=== PATIENT | male | born 1960 | race Caucasian/White ===

== ENCOUNTER 2019-12-19 11:47 | Inpatient (IN) | payer OTHER ==
[2019-12-19] VITALS (8 sets, daily range): BP systolic 146–230; BP diastolic 86–145
[~2019-12-19] VITALS: Ht 182.9 cm; Wt 106.4 kg
[2019-12-19] MEDS ORDERED: COZAAR 25 MG TA25 M2 PO (11:58)
[2019-12-19 12:18] LABS: CALCIUM 9.8 mg/dL (8.5-10.1); CREATININE 1.3 mg/dL (0.6-1.3); POTASSIUM 4.4 mmol/L (3.5-5.1)
[2019-12-19 12:28] LABS: ALBUMIN 4.2 g/dL (3.4-5.0); TOTAL BILIRUBIN 0.4 mg/dL (<0.1-1.0); TOTAL PROTEIN 8.2 g/dL (6.4-8.2)
[2019-12-19 12:39] LABS: ABSOLUTE EOSINOPHILS 0.1 thou/uL (0.0-0.7); ABSOLUTE LYMPHOCYTES 0.9 thou/uL (0.8-5.3); ABSOLUTE MONOCYTES 0.7 thou/uL (0.0-1.2); ABSOLUTE NEUTROPHILS 9.4 thou/uL (1.6-8.1); BASOPHILS 0.2 %; EOSINOPHILS 0.7 %; HEMATOCRIT 43.4 % (42.0-52.0); HEMOGLOBIN 14.9 gm/dL (14.0-18.0); LYMPHOCYTES 8.2 %; MCH 31.7 pg (26.0-34.0); MCHC 34.2 g/dL (28.0-37.0); MCV 92.6 fL (80.0-100.0); MONOCYTES 6.3 %; MPV 8.1 fl. (7.2-11.1); NUCLEATED RBCS 0 /100WBC; PLATELET COUNT* 349 thou/uL (150-400); POLYS 84.6 %; RBC 4.69 mil/uL (4.50-6.00); RDW-CV 13.5 % (10.5-14.5); WBC 11.1 thou/uL (4.0-11.0)
[2019-12-19 12:58] LABS: APTT 27.2 Seconds (25.0-31.3); PROTIME 9.8 Seconds (9.20-11.50)
--- NOTE | 2019-12-19 15:56 | NUR ---
report received from ER nurse. pt admitted on tele floor at 1415 n stretcher. pt is complaining on chest pain radiating to his neck. level 8. vale sublingual given. SBP 230. labetolol given. morphine given as well along with other prescribed medication. pt on 2 l nc. o2 saturation 99%. head of bed elevated. heparin bolus given. heparin drip started s ordered. see chart. nitropaste applied as ordered. bp rechecked one hour after. see chart. SBP 146.lunch offered along with water. iv normal saline infusing as ordered. pt now states that his chest pain is at a level of 3. call light at reach. will continue to monitor.
--- NOTE | 2019-12-19 16:05 | NUR ---
critical trop is 1.66. notified of elevated trop level. this nurse spoke with cardiology who wants patient to be NPO after midnight for cardiac procedure. no chocolate, coffee, or caffeine product sign placed at patient's door. will continue to monitor.
--- NOTE | 2019-12-19 17:33 | NUR ---
no chest pain per patient at this time. pt ate diner. pt to be npo after midnight. accucheck. insulin given. per patient, pt only have one home medication which is losartan
[2019-12-20] VITALS (16 sets, daily range): BP systolic 135–243; BP diastolic 89–128
[2019-12-20 02:07] LABS: GLYCOHEMOGLOBIN (HGB A1C) 6.1 % (4.8-5.6)
--- NOTE | 2019-12-20 04:40 | NUR ---
PT ALERT ORIENTED. DENIES CP. DID HAVE A SINUS PUGA EARLIER THIS EVENING. DR HERRMANN INTO SEE PT. NPO AT IN FOR CARDIAC CATH. TELEMETRY SHOWS SR/ST. O2 AT 2 LITERS NC. VOIDS PER BR. WCTM
[2019-12-20 05:09] LABS: HEMATOCRIT 37.8 % (42.0-52.0); MCH 31.7 pg (26.0-34.0); MCHC 34.2 g/dL (28.0-37.0); MCV 92.6 fL (80.0-100.0); MPV 8.1 fl. (7.2-11.1); RBC 4.08 mil/uL (4.50-6.00); RDW-CV 13.4 % (10.5-14.5); WBC 12.7 thou/uL (4.0-11.0)
[2019-12-20 05:12] LABS: HEMOGLOBIN 12.9 gm/dL (14.0-18.0)
[2019-12-20 05:34] LABS: ANION GAP 10 mmol/L (7-16); BUN 20 mg/dL (7-18); CALCIUM 8.9 mg/dL (8.5-10.1); CHLORIDE 98 mmol/L (98-107); CO2 25 mmol/L (21-32); CREATININE 1.3 mg/dL (0.6-1.3); GLUCOSE 142 mg/dL (70-99); POTASSIUM 4.2 mmol/L (3.5-5.1); SODIUM 133 mmol/L (136-145)
[2019-12-20 05:39] LABS: CHOLESTEROL 198 mg/dL (<200); HDL CHOLESTEROL 34 mg/dL (>40); LDL CHOLESTEROL 125 mg/dL (<100); MAGNESIUM 1.9 mg/dL (1.8-2.4); TC:HDL 5.8 Ratio (Not establshd); TRIGLYCERIDE 199 mg/dL (<150); VLDL 40 mg/dL (<40)
[2019-12-20 05:40] LABS: SERUM ASSESSMENT Clear
--- NOTE | 2019-12-20 10:25 | NUR ---
ASSUMED PT CARE REPORT RECEIVED FROM NURSE. PT IS AOX4. ASA A ND LOSARTAN GIVEN. VSS STABLE SEE CHART. CONSENT SIGNED. PT WENT FOR HEART CATH , PT CAME BACK AT 1025 FROM BOTTOM STEEP TENDER. WILL CONTINUE TO MONITOR
--- NOTE | 2019-12-20 10:45 | NUR ---
RADSTAT PROTOCOL IN PLACE. FOOD AND WATER PROVIDED. VS BEING MONITORED Q15 MINUTES. WILL CONTINUE TO MONITOR
--- NOTE | 2019-12-20 10:46 | NUR ---
RIGHT RADIAL SITE IS INTACT. NO BLEEDING
--- NOTE | 2019-12-20 13:12 | EKG ---
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 : 1960 Requested By: Tyrel Madden Order Number: [id number] MD: Tru Rodriguez Measurements Intervals [place] Rate: 106 P: 41 MT: 149 QRS: 4 QRSD: 87 T: 89 QT: 321 QTc: 427 Interpretive Statements Sinus tachycardia Probable left atrial enlargement Left ventricular hypertrophy Abnormal T, consider ischemia, lateral leads ST elevation, consider early repolarization No previous ECG available for comparison Electronically Signed On 12-20-2019 13:10:58 CDT by Tru Rodriguez [email or web address] <ELECTRONICALLY SIGNED> By: Tru Rodriguez MD, [facility] 12/20/19 1310 1152 1152 Tru Rodriguez MD, [facility] /EPI
--- NOTE | 2019-12-20 15:20 | NUR ---
VS CHARTED RADSTAT PROTOCOL IN PLACE. RIGHT RADIAL SITE IS INTACT. BP BEING MONITORED. BP DECREASED AFTER ADMINISTRATION OF BP MEDICATION.
--- NOTE | 2019-12-20 18:20 | NUR ---
RAADIAL ARTERY COMPRESSION DEVICE REMOVED AT BEDSIDE. NO BLEEDING. 4 BY 4 GAUZE PLACED OVER SITE WITH TRANSPARENT DRESSING. PT IS UP AD COLTON. DENIES PAIN OF ANY KIND. MARCIA CONTINUE TO MONITOR
[2019-12-21] VITALS: BP 135/90
[2019-12-21 04:00] VITALS: BP 132/88
--- NOTE | 2019-12-21 04:39 | NUR ---
ASSUMED PT CARE AT APPROX 1930. PT IS AWAKE AND ORIENTED X4. 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 PT DENIES CHEST PAIN/DISCOMFORT. NO ACUTE CHANGES OVERNIGHT. CALL LIGHT WITHIN REACH. HOURLY ROUNDING DONE FOR PT SAFETY.
[2019-12-21 04:43] LABS: HEMATOCRIT 35.7 % (42.0-52.0); HEMOGLOBIN 12.3 gm/dL (14.0-18.0); MCH 31.7 pg (26.0-34.0); MCHC 34.3 g/dL (28.0-37.0); MCV 92.3 fL (80.0-100.0); MPV 8.1 fl. (7.2-11.1); RBC 3.87 mil/uL (4.50-6.00); RDW-CV 13.3 % (10.5-14.5); WBC 9.6 thou/uL (4.0-11.0)
[2019-12-21 05:11] LABS: CALCIUM 8.7 mg/dL (8.5-10.1); CREATININE 1.2 mg/dL (0.6-1.3)
[2019-12-21 05:20] LABS: TROPONIN-I LEVEL 28.92 ng/mL (<0.06)
[2019-12-21 08:00] VITALS: BP 113/72
[2019-12-21] MEDS ORDERED: EFFIENT10 MG PO (10:25)
[2019-12-21] MEDS ORDERED: LIPITOR 40 MG T40 M1 PO (10:25)
[2019-12-21] MEDS ORDERED: ASPIR 8181 MG PO (10:25)
[2019-12-21] MEDS ORDERED: TOPROL XL50 MG PO (10:25)
[2019-12-21] MEDS ORDERED: LASIX 20 MG TAB20 MG PO (10:26)
[2019-12-21] MEDS ORDERED: KLOR-CON 10 ER10 MEQ PO (10:26)
[2019-12-21 11:30] VITALS: BP 131/84
[2019-12-21 12:49] VITALS: BP 113/72
[2019-12-21] MEDS ORDERED: NITROSTAT0.4 M1 SUBLING (13:48)
[2019-12-21] MEDS ORDERED: COZAAR 50 MG TA50 M1 PO (13:50)
[2019-12-21 13:59] VITALS: BP 113/72
--- NOTE | 2019-12-21 14:48 | NUR ---
ASSUMED CARE OF PATIENT THIS AM AT 0730. PATIENT IS ALERT AND ORIENTED X 4. HE DENIES CHEST PAIN AND SOA. DR IN TO ROUND THIS AM AND DISCHARGE ORDERS WERE WRITTEN. CARDIOLOGY IN THIS AFTERNOON TO WRITE FURTHER DISCHARGE ORDERS. RIGHT WRIST CATH SITE IS INTACT AND WITHOUT HEMATOMA. SALINE LOCK AND TELEMONITOR DISCONTINUED. PATIENT GIVEN DISCHARGE INSTRUCTIONS, PRESCRIPTIONS, CARE NOTES AND FOLLOWUP INSTRUCTIONS. HE VERBALIZED UNDERSTANDING OF INSTRUCTIONS. PATIENT DISCHARGED TO HOME WITH BELONGINGS.
--- NOTE | 2019-12-22 12:34 | CARD ---
[address] [address] CARDIAC CATH REPORT Name: TRU REIS Room: [address]#: [id number] Admission: 12/19/19 Attend Phys: Andrew Moraes MD Discharge: 12/21/19 Date of : 64 Report #: [id number] THIS REPORT FOR: //name// cc: Parth Duran DO Parth Duran DO ~ APPROVED REPORT Study performed: 12/20/2019 08:19:26 Patient Details Patient Status: In-Patient Room #: 223 The patient is a 59 year-old male Event Personnel Tru Rodriguez Buffing Wheel Raker, Sophia Chung Ampoule Sealer, Dimple Kay RTR Scrub, Carla Pablo RTR Monitor Procedures Performed Art Access - R radial artery, Left Heart Cath w/or w/o Coronaries LHC , MONICA Place w/wo Plasty Single DIAG , Hemostasis with Hemoband Indication Abnormal ECG, Non-STEMI , Chest pain Risk Factors Diabetes Admission/Lab Medications/Medications given during procedure Glycoprotein IllbIlla Inhibitors, Heparin Unfract., Nitroglycerin IA bolus 400 mcg total, Verapamil IA bolus 5 mg total, Heparin IV bolus 7000 units total, Aggrastat IV bolus 10 ml, Hydralazine (Apresoline) IV 10 mg, Effient PO 60 mg, Nitroglycerin IC 200 mcg Procedure Narrative The patient was brought electively to the Cardiac Catheterization Laboratory and was prepped and draped in a sterile manner. The right wrist was infiltrated with 1% Lidocaine subcutaneous anesthesia. A 6F Slender Freedom sheath was inserted into the right radial artery. Coronary angiography was performed using coronary diagnostic catheters. The right coronary system was accessed and visualized with a 6F JR4 catheter. The left coronary system was accessed and visualized with a 6F JL4 catheter. The [place] [address] CARDIAC CATH REPORT Name: TRU REIS Room: [address]#: [id number] Admission: 12/19/19 Attend Phys: Andrew Moraes MD Discharge: 12/21/19 Date of : 64 Report #: [id number] and visualized with a 6F Pigtail catheter. Left ventricular/Aortic Valve gradient assessed via catheter pullback. Left ventriculogram was performed in CASTELAN projection. Closure device was deployed with a 6 Fr Radial vasc band 27 cm. The patient tolerated the procedure well and there were no complications associated with the procedure. There was no hematoma. Intraoperative Conscious Sedation Sedation start time: 09:09 Case end Time: 09:58 Fentanyl 25 mcg Versed 4 mg Fluoro Time: 7.6 minutes Dose: DAP [id number] cGycm2 2192 mGy Contrast Type and Amount: Visipaque 190 ml Coronary Angiography The patient's coronary anatomy is co- dominant. Diagnostic Cath Left Main 0% stenosis LAD 40% distal stenosis Diagonal 1 100% occluded Circumflex 0% stenosis Right Coronary 30% proximal stenosis R PDA 80% mid stenosis Left Ventriculography The left ventricular ejection fraction is estimated to be 40-45%. Left ventricular wall motion abnormalities are present. There is no mitral insufficiency. Severe distal anterolateral wall hypokinesis Hemodynamics The aortic pressure is 168/106 mmHg with a mean of 133 mmHg. The left ventricular pressure is 168/24 mmHg with a mean of mmHg. The left ventricular end diastolic pressure is 30 mmHg. There was no gradient across the aortic valve upon pullback. Pullback from the left ventricle to the aorta revealed no gradient across the aortic valve. PCI Technique Lesion Anticoagulation was achieved with Heparin. bolus of iv aggrastat given Percutaneous coronary intervention was performed on the first diagnonal branch segment. The lesion stenosis prior to intervention was 100% with THANG 0 flow. A 6F XB LAD 3.5 [place] [address] CARDIAC CATH REPORT Name: TRU REIS Room: [address]#: [id number] Admission: 12/19/19 Attend Phys: Andrew Moraes MD Discharge: 12/21/19 Date of : 64 Report #: [id number] engage the left main ostium. A BMW 190cm Interventional Guidewire was used to cross the lesion. BALLOON DILATION A Balloon catheter Euphora RX 2.5 x 12mm was inserted and inflated up to 10.00atm for 11seconds. Repeat angiography revealed the following post-dilatation results: 40% stenosis. Additional Inflation: 12.00atm for 9seconds. Additional Inflation: 12.00atm for 10seconds. STENT DEPLOYMENT A drug-eluting stent [place] RX Stent 2.5X18mm was inserted and inflated up to 10.00atm for 19seconds. Repeat angiography revealed the following post-stent deployment results: 0% stenosis. Additional Inflation: 17.00atm for 17seconds. Final angiography reveals 0 % stenosis with THANG 3 flow. Conclusion 1. acute occlusion of the first diagonal branch of the LAD 2. successful placement of a drug eluiting stent in the diagonal artery. 3. LVEF 40-45% Recommendations Cardiac Rehabilitation Referral Aggressive Medical Therapy Medications Administered Prasugrel <ELECTRONICALLY SIGNED> By: Tru Rodriguez MD, [facility] 12/22/19 1232 1232 1232Davineisha Rodriguez MD, FAC /INF
--- NOTE | 2019-12-22 15:21 | CON ---
[address] [address] CONSULTATION Name: TRU REIS Room: [address] IN .R.#: [id number] Admission: 12/19/19 Attend Phys: Andrew Moraes MD Discharge: 12/21/19 Date of : 64 Report #: [id number] THIS REPORT FOR: //name// cc: Parth Duran Bradley L. DO THIS REPORT FOR: //name// CC: Parth Duran DO Andrew Moraes DATE OF SERVICE: 12/19/2019 CARDIOLOGY CONSULTATION HISTORY OF THE PRESENT ILLNESS: The patient is a 59-year-old single white male who I was asked to see in the hospital today after he had evidence of a non-STEMI. The patient has no previous history of heart disease. 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 He was doing well until 2 nights ago, he went out to dinner. When he got home, he felt a discomfort in his chest, lasted a couple of hours, he finally went to sleep. Yesterday, he again had a discomfort in his chest and his jaw, he felt diaphoretic. He finally drove himself to the hospital today. In the Emergency Room, he was noted to have elevated troponin consistent with non-STEMI. I was asked to see him for further evaluation and treatment. He denies a previous history of exertional chest pain. He denied the pain today being related to coughing. He has had no recent fever or blood in stool. He denied trauma to his chest, no rash. He was given nitroglycerin in the Emergency Room, his pain resolved. PAST MEDICAL HISTORY: He has had previous knee surgery, neck surgery, hernia repair, hypertension. No history of diabetes or hyperlipidemia. CURRENT MEDICATIONS: Consists of losartan 25 mg a day. ALLERGIES: He has no known drug allergies. FAMILY HISTORY: Negative for heart disease. 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 Smokes less than a half pack of cigarettes a day. REVIEW OF SYSTEMS: He has no history of stroke. He does have a chronic cough. No history of liver disease, kidney disease, cancer, psychiatric illness, [place] [address] CONSULTATION Name: SMILEYTRU ARCHER Room: [address]#: [id number] Admission: 12/19/19 Attend Phys: Andrew Moraes MD Discharge: 12/21/19 Date of : 64 Report #: [id number] PHYSICAL EXAMINATION: GENERAL: Revealed an elderly male, appeared in no distress. VITAL SIGNS: He initially had a blood pressure of 200/100, currently blood pressure 150/90; pulse is 80. He is afebrile. HEENT: He was anicteric. Conjunctivae were pink. Mucous membranes moist. NECK: Veins nondistended. No carotid bruits. CHEST: There is expiratory wheezes. CARDIAC: Regular rate and rhythm. ABDOMEN: Soft. EXTREMITIES: Had no edema. Posterior tibial pulse 2+ bilaterally. SKIN: Cool and dry. NEUROLOGIC: Nonfocal. LABORATORY AND DIAGNOSTIC DATA: His ECG in the Emergency Room today showed a sinus rhythm. There is T-wave inversion in lead aVL, V5, V6. Workup in the Emergency Room today, he had a portable chest x-ray, normal heart size and clear lung michele. His laboratory: Sodium 136, potassium 4.4, BUN 20, creatinine 1.3, glucose is 150. His liver function studies were normal. Troponin is now 2.25, BNP 388. TSH 1.0. White blood cell count 11.1, hemoglobin 14.9. IMPRESSION AND RECOMMENDATIONS: 1. Non-ST elevation myocardial infarction. Recommend cardiac catheterization. 2. Hypertension. The patient is on an ARB. 3. Tobacco abuse. 4. Chronic bronchitis. 5. Elevated blood glucose. Rule out diabetes. <ELECTRONICALLY SIGNED> By: Tru Rodriguez MD, [facility] 12/22/19 1521 2301 [id number] Rodriguez MD, [facility] /nt
--- NOTE | 2019-12-22 16:07 | EKG ---
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 : 1960 Requested By: Tyrel Madden Order Number: [id number] Reading MD: Kristofer Rousseau Measurements Intervals [place] Rate: 90 P: 42 KS: 143 QRS: 4 QRSD: 86 T: 93 QT: 368 QTc: 451 Interpretive Statements Sinus rhythm Left ventricular hypertrophy Abnormal T, consider ischemia, lateral leads Compared to ECG 12/19/2019 11:52:15 Sinus tachycardia no longer present T-wave abnormality still present Possible ischemia still present ST (T wave) deviation still present Electronically Signed On 12-22-2019 16:05:47 CDT by Kristofer Rousseau [email or web address] <ELECTRONICALLY SIGNED> By: Kristofer Rousseau MD, [facility] 12/22/19 1605 1233 1233 Kristofer Rousseau MD, [facility] /EPI
--- NOTE | 2019-12-22 16:19 | EKG ---
[place] [address] ELECTROCARDIOGRAM REPORT Name: TRU REIS Room: [address] IN M.R.#: [id number] Admission: 12/19/19 Attend Phys: Andrew Moraes, Discharge: 12/21/19 Date of : 64 Date of Service: 12/21/19 1052 Report #: [id number] THIS REPORT FOR: //name// [place] Test Date: 2019-12-21 Test Time: 10:52:21 Pat Name: TRU REIS Department: Room: [address] Gender: M Cardroom Attendant: : 1960 Requested By: Tru Rodriguez Order Number: [id number] Luanne MD: Kristofer Rousseau Measurements Intervals [place] Rate: 81 P: 39 NV: 142 QRS: 70 QRSD: 96 T: 191 QT: 431 QTc: 501 Interpretive Statements Sinus rhythm deep t wave inversion over anterior precordium, possible ischemia LVH w/ repol abnormalities Minimal ST elevation, lateral leads Prolonged QT interval Compared to ECG 12/19/2019 11:52:15 deep t wave inversion has developed lateral ischemic changes have evolved Electronically Signed On 12-22-2019 16:17:52 CDT by Kristofer Rousseau [email or web address] <ELECTRONICALLY SIGNED> By: Kristofer Rousseau MD, [facility] 12/22/19 1617 1052 1052 Kristofer Rousseau MD, [facility] /EPI
== END 2019-12-21 14:30 | disposition home or self-care (01) | DRG 246 ==
LOC: M.ERS 11:47 → M.TBA 13:03 → M.2W 13:03
PROVIDERS: Emergency Medicine Emergency Medical Services; Internal Medicine Cardiovascular Disease; ADMIT Internal Medicine
PROC: 027034Z Dilation of Coronary Artery, One Artery with Drug-eluting Intraluminal Device, Percutaneous Approach (ICD-10-PCS; principal; 2019-12-20)
PROC: 4A023N7 Measurement of Cardiac Sampling and Pressure, Left Heart, Percutaneous Approach (ICD-10-PCS; principal; 2019-12-20)
PROC: B215YZZ Fluoroscopy of Left Heart using Other Contrast (ICD-10-PCS; principal; 2019-12-20)
PROC: B211YZZ Fluoroscopy of Multiple Coronary Arteries using Other Contrast (ICD-10-PCS; principal; 2019-12-20)
PROC: 3E033PZ Introduction of Platelet Inhibitor into Peripheral Vein, Percutaneous Approach (ICD-10-PCS; principal; 2019-12-20)
DX: I21.4 Non-ST elevation (NSTEMI) myocardial infarction (principal); I50.23 Acute on chronic systolic (congestive) heart failure; I16.1 Hypertensive emergency; I13.0 Hypertensive heart and chronic kidney disease with heart failure and stage 1 through stage 4 chronic kidney disease, or unspecified chronic kidney disease; F17.210 Nicotine dependence, cigarettes, uncomplicated; J42 Unspecified chronic bronchitis; K21.9 Gastro-esophageal reflux disease without esophagitis; E11.22 Type 2 diabetes mellitus with diabetic chronic kidney disease; N18.9 Chronic kidney disease, unspecified; E78.5 Hyperlipidemia, unspecified; M19.90 Unspecified osteoarthritis, unspecified site; E66.9 Obesity, unspecified; F41.1 Generalized anxiety disorder; F41.0 Panic disorder [episodic paroxysmal anxiety]; Z68.31 Body mass index [BMI] 31.0-31.9, adult; Z90.89 Acquired absence of other organs; Z79.899 Other long term (current) drug therapy

== ENCOUNTER → 2020-08-10 | Outpatient (CLI) | payer OTHER ==
[~2020-08-10] MED LIST: ASPIR 8181 MG PO; COZAAR 25 MG TA25 M2 PO; COZAAR 50 MG TA50 M1 PO; EFFIENT10 MG PO; KLOR-CON 10 ER10 MEQ PO; LASIX 20 MG TAB20 MG PO; LIPITOR 40 MG T40 M1 PO; NITROSTAT0.4 M1 SUBLING; TOPROL XL50 MG PO
[2020-08-10 14:40] LABS: ABSOLUTE LYMPHOCYTES 1.9 thou/uL (0.8-5.3); ABSOLUTE MONOCYTES 1.3 thou/uL (0.0-1.2); ABSOLUTE NEUTROPHILS 9.2 thou/uL (1.6-8.1); BASOPHILS 0.3 %; EOSINOPHILS 0.3 %; HEMATOCRIT 38.1 % (42.0-52.0); HEMOGLOBIN 12.9 gm/dL (14.0-18.0); LYMPHOCYTES 15.4 %; MCHC 33.7 g/dL (28.0-37.0); MCV 91.9 fL (80.0-100.0); MONOCYTES 10.2 %; MPV 8.1 fl. (7.2-11.1); NUCLEATED RBCS 0 /100WBC; PLATELET COUNT* 298 thou/uL (150-400); POLYS 73.8 %; RBC 4.15 mil/uL (4.50-6.00); RDW-CV 13.5 % (10.5-14.5); WBC 12.5 thou/uL (4.0-11.0)
[2020-08-10 15:05] LABS: CALCIUM 9.3 mg/dL (8.5-10.1); CREATININE 1.2 mg/dL (0.6-1.3); POTASSIUM 4.2 mmol/L (3.5-5.1)
== END ==
LOC: M.LAB 14:23
PROVIDERS: ATTEND Nurse Practitioner
DX: R06.02 Shortness of breath (principal)

== ENCOUNTER → 2020-08-25 | Outpatient (CLI) | payer OTHER ==
[~2020-08-25] MED LIST changes: +ESCITALOPRA5 MG/5 ML PO; +FAMOTIDINE 10 M10 MG PO; +FISH OIL 1,0001 EAC9 PO; +SUPER THERAVIT1 EACH PO; +TOPROL XL100 MG PO
--- NOTE | 2020-08-25 16:29 | CARDNUC ---
[place] [address] CARDIAC NUCLEAR IMAGING REPORT Name: SMILEYTRU Mejía Room: [facility]#: [id number] Admission: 08/25/20 Attend Phys: Bc Vick, Discharge: Date of : 64 Date of Service: 08/25/20 1629 Report #: [id number] THIS REPORT FOR: cc: Parth Duran Bradley L. DO [place],Bc Beauchamp MD [facility] ~ APPROVED REPORT Study performed: 08/25/2020 14:17:52 Exam: Nuclear Stress Test Indication: Dyspnea Patient Location: Out-Patient Stress Tech: Maria Teresa Chiu Stress Nurse: Jasmina Farias RN NM Tech:OZZY Chapman Ht: 6 ft 0 in Wt: 134 lbs BSA: 1.80 m2 BMI: 18.17 Medical History Medical History: Cardiomyopathy, CAD s/p TN, CAD s/p stent, HTN, Hyperlipidemia Medications: asa-81, atorvastatin, fish oil, lasix, toprolol-xl, ntg, k-dur, effient, losartan Allergies: No known drug allergies Cardiac Risk Factors: Age, HTN, Hyperlipidemia, Past Smoker Previous Cardiac Procedures: PCI, Myocardial infarction Exercise History: Indeterminate Meds Held (24 hrs): toprolol-xl Stress Test Details Stress Test: Pharmacologic stress testing performed using 0.4 mg of regadenoson per 5 mL given IV over 10 seconds. Reason for pharmacologic stress test: physical limitation. HR Resting HR: 76 bpm Max Heart Rate (APMHR): 163 bpm Max HR Achieved: 104 bpm Target HR (85% APMHR): 138 bpm % of APMHR: 63 Recovery HR: 92 bpm BP Resting BP: 151/100 [place] [address] CARDIAC NUCLEAR IMAGING REPORT Name: TRU REIS Room: [facility]age#: [id number] Admission: 08/25/20 Attend Phys: Bc Vick, Discharge: Date of : 64 Date of Service: 08/25/20 1629 Report #: [id number] Max BP: 170/70 mmHg ECG Resting ECG: Sinus Rhythm, nonspecific ST-T abnormalities Stress ECG: Sinus Rhythm, nonspecific ST-T abnormalities ST Change: None Arrhythmia: None Recovery ECG: Sinus Rhythm, nonspecific ST-T abnormalities Recovery ST Change: None Recovery Arrhythmia: None Clinical Reason for Termination: Completed protocol The patient tolerated Lexiscan infusion without significant cardiac symptoms. Nurse Comments pt unable to walk treadmill due to sore knee Stress ECG Conclusion The baseline twelve-lead EKG shows sinus rhythm with some diffuse nonspecific ST segment depression. EKGs obtained during and post Lexiscan infusion show sinus rhythm with persistent nonspecific ST segment depression that is not significantly changed from baseline. There were no stress-induced arrhythmias. NM EXAM: Myocardial Perfusion REST/STRESS Imaging Protocol: Rest Tc-99m/Stress Tc-99m 1 day Resting Data Rest SPECT myocardial perfusion imaging was performed in supine position 30 minutes following the intravenous injection of 10.2 mCi of Tc-99m Sestamibi. Time of rest injection: 1255 Date: 08/25/2020 The images were gated to evaluate regional wall motion and calculate left ventricular ejection fraction. Administration Route: IV Pharmacologic Stress Pharmacologic stress test was performed by injecting Regadenoson 0.4 mg IV push followed by the intravenous injection of 33.5 mCi of Tc-99m Sestamibi. Time of stress injection: 1430 Date: 08/25/2020 Administration Route: [place] [address] CARDIAC NUCLEAR IMAGING REPORT Name: TRU REIS Room: [facility]#: [id number] Admission: 08/25/20 Attend Phys: Bc Vick, Discharge: Date of : 64 Date of Service: 08/25/20 1629 Report #: [id number] Gated Stress SPECT was performed 40 minutes after stress injection. The images were gated to evaluate regional wall motion and calculate left ventricular ejection fraction. Stress only was performed in the Supine position. Study Quality Study: Good Artifact: No artifact Study Data At rest, the left ventricular ejection fraction was 39%.. Post stress, the left ventricular ejection was 39%.. TID = 0.91. Perfusion Perfusion images show a small in size severe intensity fixed anteroapical defect with a moderate region of buddy-infarct ischemia extending into the apical portions of the lateral and inferior bob. No other significant fixed or reversible defects are identified. Wall Motion LV systolic function is moderately decreased. There is significant hypokinesis to akinesis involving the apex and apical portions of the anterior and anterolateral wall. Nuclear Conclusion ECG Findings: non-diagnostic Clinical Findings: negative for ischemia Nuclear Findings: positive for ischemia Exercise Capacity: not assessed Left Ventricular Function: abnormal Risk Study: high Perfusion images suggest prior focal apical anterior infarct with a moderate region of buddy-infarct ischemia. Global LV systolic function is moderately decreased with wall motion abnormalities as outlined above. This is a high risk study. <Conclusion> The baseline twelve-lead EKG shows sinus rhythm with some diffuse nonspecific ST segment depression. EKGs obtained during and post Lexiscan infusion show sinus rhythm with persistent nonspecific [place] [address] CARDIAC NUCLEAR IMAGING REPORT Name: TRU REIS Room: [facility]#: [id number] Admission: 08/25/20 Attend Phys: Bc Vick, Discharge: Date of : 64 Date of Service: 08/25/20 1629 Report #: [id number] segment depression that is not significantly changed from baseline. There were no stress-induced arrhythmias. <ELECTRONICALLY SIGNED> By: Bc Vick MD, FACC 08/25/201628 28 28 Bc Vick MD, FACC /INF
== END ==
LOC: M.NUC 08-11 16:16
PROVIDERS: ATTEND Internal Medicine Cardiovascular Disease
DX: I25.10 Atherosclerotic heart disease of native coronary artery without angina pectoris (principal)

== ENCOUNTER 2020-09-14 08:59 | Observation (INO) | payer OTHER ==
[~2020-09-14] VITALS: Ht 182.9 cm; Wt 108.3 kg
[2020-09-14] VITALS (11 sets, daily range): BP systolic 139–174; BP diastolic 65–113
--- NOTE | ~2020-09-14 | H ---
[address] [address] HISTORY AND PHYSICAL Name: TUR REIS Room: [address] Cathy Cazares#: [id number] Admission: 09/14/20 Attend Phys: Tru Rodriguez MD, F Discharge: 09/15/20 Date of : 64 Report #: [id number] THIS REPORT FOR: cc: Parth Duran Bradley L. DO ~ [facility],Medical Records Staff Please refer to the History and Physical performed in the physician's office. By: [facility]0Medical Records Staff [facility] /[place]
[2020-09-14 09:47] LABS: HEMATOCRIT 39.7 % (42.0-52.0); HEMOGLOBIN 13.2 gm/dL (14.0-18.0); MCH 30.4 pg (26.0-34.0); MCHC 33.2 g/dL (28.0-37.0); MCV 91.5 fL (80.0-100.0); MPV 8.2 fl. (7.2-11.1); RBC 4.34 mil/uL (4.50-6.00); RDW-CV 13.2 % (10.5-14.5); WBC 6.1 thou/uL (4.0-11.0)
[2020-09-14 10:01] LABS: ALBUMIN 3.9 g/dL (3.4-5.0); ALKALINE PHOSPHATASE 92 U/L (46-116); ANION GAP 7 mmol/L (7-16); BUN 15 mg/dL (7-18); CALCIUM 8.9 mg/dL (8.5-10.1); CHLORIDE 103 mmol/L (98-107); CHOLESTEROL 96 mg/dL (<200); CO2 31 mmol/L (21-32); CREATININE 1.2 mg/dL (0.6-1.3); GLUCOSE 115 mg/dL (70-99); HDL CHOLESTEROL 29 mg/dL (>40); LDL CHOLESTEROL 53 mg/dL (<100); POTASSIUM 4.4 mmol/L (3.5-5.1); SGOT 24 U/L (15-37); SGPT 38 U/L (30-65); SODIUM 141 mmol/L (136-145); TC:HDL 3.3 Ratio (Not establshd); TOTAL BILIRUBIN 0.4 mg/dL (<0.1-1.0); TOTAL PROTEIN 7.1 g/dL (6.4-8.2); TRIGLYCERIDE 74 mg/dL (<150); VLDL 15 mg/dL (<40)
[2020-09-14 10:04] LABS: SERUM ASSESSMENT Clear
[2020-09-14 10:11] LABS: APTT 25.2 Seconds (25.0-31.3); PROTIME 10.4 Seconds (9.20-11.50)
--- NOTE | 2020-09-14 10:31 | EKG ---
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: : 1960 Requested By: Berhane Rodriguez Order Number: [id number] Reading MD: Berhane Rodriguez Measurements Intervals [place] Rate: 58 P: 69 MS: 157 QRS: 63 QRSD: 105 T: 100 QT: 433 QTc: 426 Interpretive Statements Sinus rhythm Probable lateral infarct, age indeterminate Compared to ECG 12/21/2019 10:52:21 T-wave abnormality no longer present Possible ischemia no longer present Left ventricular hypertrophy no longer present ST (T wave) deviation no longer present Prolonged QT interval no longer present Electronically Signed On 09-14-2020 10:31:27 [place] [employer] by Berhane Rodriguez [email or web address] <ELECTRONICALLY SIGNED> By: Berhane Rodriguez MD, FACC 09/14/20 1031 1010 1010 Behrane Rodriguez MD, FAC /EPI
--- NOTE | 2020-09-14 15:10 | NUR ---
PT ORIENTED TO ROOM AND UNIT. BED LOW AND LOCKED, SIDE RAILS UP X3, CALL LIGHTIN REACH, TELE APPLIED. RIGHT RADIAL SOTE CDI WITH NO HEMATOMA. TR BAND IN PLACE. WILL CONTINUE TO ASSESS.
--- NOTE | 2020-09-14 17:43 | NUR ---
PRESSURE FULLY RELEASED FROM TR BAND AND REMOVED. GAUZE AND TRANSPARENT DRESSING PLACED OVER RADIAL SITE WHIC IS CDI WITH NO HEMATOMA. WILL CONTINUE TO ASSESS.
--- NOTE | 2020-09-14 19:02 | CARD ---
[address] [address] CARDIAC CATH REPORT Name: TRU REIS Room: [address] M.R.#: [id number] Admission: 09/14/20 Attend Phys: Tru Rodriguez MD, F Discharge: Date of : 64 Report #: [id number] THIS REPORT FOR: cc: Parth Duran Bradley L. DO ~ Tru Rodriguez MD [facility] APPROVED REPORT Study performed: 09/14/2020 10:15:34 Patient Details Patient Status: Out-Patient Room #: The patient is a 60 year-old male Event Personnel Denis Merida RTR Monitor, Andrew Cleaning ScrubMargaret Sujita RN RN, Tru Rodriguez Pneumatic Jacketer Procedures Performed Left Heart Cath w/or w/o Coronaries [id number] [facility] [address] Place w/wo Plasty Single LAD [id number] [facility] Place w/wo Plasty Addl BR OM 1 [id number] DESADDL Hemostasis with Hemoband Indication Dyspnea, Chest pain Risk Factors Hypercholesterolemia, Coronary Artery DiseaseHypertension Previous Procedures/Diagnoses Previous PCI, Previous MT Admission/Lab Medications/Medications given during procedure Heparin Unfract., Fentanyl IV 25 mcg, Midazolam (Versed) IV 2 mg, Lidocaine Subcut 4 ml, Nitroglycerin IA 200 mcg, Verapamil IA 2.5 mg, Heparin IV 5000 units, Heparin IV 4000 units, Heparin IV 2000 units, Adenosine IC 200 mcg, Atropine IV 0.5 mg, Heparin IV 1000 units Procedure Narrative The patient was brought electively to the Cardiac Catheterization Laboratory and was prepped and draped in a sterile manner. The right wrist was infiltrated with 2% Lidocaine subcutaneous anesthesia. A Slender Glidesheath sheath was inserted into [place] [address] CARDIAC CATH REPORT Name: TRU REIS Room: [address]#: [id number] Admission: 09/14/20 Attend Phys: Tru Rodriguez MD, F Discharge: Date of : 64 Report #: [id number] Coronary angiography was performed using coronary diagnostic catheters. The right coronary system was accessed and visualized with a Diagnostic JR4 6Fr catheter. The left coronary system was accessed and visualized with a Diagnostic JL4 6Fr catheter. The left ventricle was accessed and visualized with a Diagnostic JR4 6Fr catheter. Left ventricular/Aortic Valve gradient assessed via catheter pullback. Closure device was deployed with a 6 Fr vascband. The patient tolerated the procedure well and there were no complications associated with the procedure. There was no hematoma. Intraoperative Conscious Sedation Sedation start time: 1055 Case end Time: 1202 Fentanyl 100 mcg Versed 8 mg Fluoro Time: 12.9 minutes Dose: DAP [id number] cGycm2 3460.75 mGy Contrast Type and Amount: Visipaque 260 ml Coronary Angiography The patient's coronary anatomy is co- dominant. Diagnostic Cath Left Main 0% stenosis LAD 90% mid stenosis followed by a more distal 70% stenosis Diagonal 1 large vessel with a stent that had 0% stenosis OM1 ostial 50% stenosis. A mid 80% stenosis was noted Right Coronary 40% proximal stenosis R PDA 90% mid stenosis noted in a portion of the artery that had a narrow lumen. Left Ventriculography Left Ventriculography was not performed. Hemodynamics The aortic pressure is 142/76 mmHg with a mean of 60 mmHg. The left ventricular pressure is 149/10 mmHg with a mean of mmHg. The left ventricular end diastolic pressure is 16 mmHg. There was no gradient across the aortic valve upon pullback. Pullback from the left ventricle to the aorta revealed no gradient across the aortic valve. PCI Technique Lesion Anticoagulation was achieved with Heparin. Patient was preloaded with Effient. Percutaneous coronary intervention [place] [address] CARDIAC CATH REPORT Name: TRU REIS Room: [address]#: [id number] Admission: 09/14/20 Attend Phys: Tru Rodriguez MD, F Discharge: Date of : 64 Report #: [id number] left anterior descending artery segment. The lesion stenosis prior to intervention was 90 follow by a 70%% with THANG 3 flow. A 6FR XB 3.5 100CM Guide Catheter was used to engage the Left ostium. A IG: BMW 190cm Interventional Guidewire was used to cross the lesion. BALLOON DILATION A Balloon catheter Euphora SC 2.5x12 was inserted and inflated up to 16.00atm for 14seconds. Repeat angiography revealed the following post-dilatation results: 40% stenosis. Additional Inflation: 16.00atm for 7seconds. STENT DEPLOYMENT A drug-eluting stent [place] RX Stent 3.5X18mm was inserted and inflated up to 9.00atm for 13seconds. Repeat angiography revealed the following post-stent deployment results: 0% stenosis but a proximal edge dissection was noted. Additional Inflation: 9.00atm for 5seconds. Additional Inflation: 12.00atm for 12seconds. A second more proximal drug eluting stent 3.0 x 12 was placed proximally to the first stent so that there was minimal overlap between this stent and the more distal stent. A third drug eluting stent which was 3.0 x 18 mm was placed distal to the previous 2 stents so that there was minimal overlap between this stent and the more proximal stent. Final angiography reveals 0 % stenosis with THANG 3 flow. PCI Technique Lesion 2 Percutaneous Coronary Intervention was performed on the first obtuse marginal branch segment. Patient was preloaded with Effient. Percutaneous coronary intervention was performed on the first obtuse marginal branch segment. The lesion stenosis prior to intervention was 80% with THANG 3 flow. A 6FR XB 3.5 100CM Guide Catheter was used to engage the Left main ostium. A IG: BMW 190cm Interventional Guidewire was used to cross the lesion. Balloon Dilation A Balloon catheter Euphora SC 2.5x12 was inserted and inflated up to 19.00atm for 19seconds. Repeat angiography revealed the following post-dilatation results: 40% stenosis. Stent Deployment A drug-eluting stent [place] RX Stent 3.0X 12mm was inserted and inflated up to 18.00atm for 11seconds. Repeat angiography revealed the following post-stent deployment results: 0% stenosis. Additional Inflation: 20.00atm for 9seconds. Additional Inflation: 22.00atm for [address] [place] [address] CARDIAC CATH REPORT Name: TRU REIS Room: [address] M.R.#: [id number] Admission: 09/14/20 Attend Phys: Tru Rodriguez MD, F Discharge: Date of : 64 Report #: [id number] 11seconds. Unable to advance a 3.0x 18 mm drug eluting stent because of the angled takeoff of the marginal branch from the circumflex. Final angiography reveals 0 % stenosis with THANG 3 flow. Conclusion 1. 90% stenosis noted of the mid LAD 2. 80% stenosis noted of the first marginal branch of the circumlex 3. no restenosis noted of a stent in the first diagonal branch of the LAD 4. successful placement of 3 drug eluting stents in the mid LAD, and a drug eluting stent in the marginal branch of the circumfex Recommendations Cardiac Rehabilitation Referral Aggressive Medical Therapy Medications Administered Prasugrel <ELECTRONICALLY SIGNED> By: Tru Rodriguez MD, FACC 09/14/201900 00 marshall Rodriguez MD, FACC /INF
[2020-09-15 00:06] VITALS: BP 156/93
[2020-09-15 04:14] LABS: HEMATOCRIT 37.4 % (42.0-52.0); HEMOGLOBIN 12.6 gm/dL (14.0-18.0); MCH 30.8 pg (26.0-34.0); MCHC 33.6 g/dL (28.0-37.0); MCV 91.8 fL (80.0-100.0); MPV 8.3 fl. (7.2-11.1); RBC 4.07 mil/uL (4.50-6.00); RDW-CV 13.2 % (10.5-14.5); WBC 8.2 thou/uL (4.0-11.0)
[2020-09-15 04:39] LABS: CALCIUM 9.9 mg/dL (8.5-10.1); POTASSIUM 4.2 mmol/L (3.5-5.1)
[2020-09-15 04:41] LABS: TROPONIN-I LEVEL 5.28 ng/mL (<0.06)
[2020-09-15 04:59] VITALS: BP 156/86
--- NOTE | 2020-09-15 06:56 | NUR ---
ASSUMED CARE OF PT AFTER REPORT AT 1930. PT A&OX4. VSS. PHYSICAL ASSESSMENT COMPLETED AND CHARTED. PT ON RA. PT TRACING SR/SB ON TELE. PT UPADLIB TO RESTROOM. PT DENIES ANY PAIN. POST CATH SITE TO RIGHT RADIAL CLEAN, DRY & INTACT. NO BLEEDING NOTED. BRUISING NOTED. CALL LIGHT WITHIN REACH.
[2020-09-15 08:00] VITALS: BP 159/100
--- NOTE | 2020-09-15 10:12 | NUR ---
CM SPOKE TO THE PT TO DISCUSS CM ASSESSEMENT. PT A&O, INDEPENDENT WITH ADL'S, ACTIVE AND WORKS OUTSIDE THE HOME. PT USES 0 DME. PT HAS 0 HX OF HH OR SNF. CM WILL REMAIN AVAILABLE TO ASSIST AND FOLLOW NEEDED.
[2020-09-15 11:19] VITALS: BP 159/100
[2020-09-15 11:23] VITALS: BP 159/100
--- NOTE | 2020-09-15 11:54 | NUR ---
RECEIVED REPORT. ASSUMED CARE OF PT AROUND 0730. AM ASSESSMENT AND VITALS COMPLETED CHARTED. MEDS PER EMAR. RIGHT RADIAL CATH SITE CDI, WITH SOME BRUISING. DISCHARGE ORDERS RECEIVED. DISCHARGE COMPLETED DOCUMENTED. PT AWARE OF FOLLOW UP APPOINTMENTS. IV AND GEOSPATIAL INFORMATION TECHNOLOGIST REMOVED. ALL BELONGINGS GATHERED AND SENT OUT WITH PT. PT LEFT UNIT WALKING WITH NURSING STAFF. PT LEFT HOSPITAL IN CAR DRIVING SELF.
--- NOTE | 2020-09-15 14:08 | EKG ---
[place] [address] ELECTROCARDIOGRAM REPORT Name: BERHANE REIS Room: [address] M.R.#: [id number] Admission: 09/14/20 Attend Phys: Berhane Rodriguez MD Discharge: 09/15/20 Date of : 64 Date of Service: 09/15/20 0828 Report #: [id number] THIS REPORT FOR: //name// [facility] Test Date: 2020-09-15 Test Time: 08:28:46 Pat Name: BERHANE REIS Department: Room: [address] Gender: M Can Sterilizer: : 1960 Requested By: Berhane Rodriguez Order Number: [id number] Reading MD: Bc Vick Measurements Intervals [place] Rate: 58 P: 45 NH: 151 QRS: 51 QRSD: 98 T: 90 QT: 415 QTc: 408 Interpretive Statements Sinus rhythm Nonspecific T abnormalities, lateral leads Compared to ECG 09/14/2020 10:10:03 T-wave abnormality now present Myocardial infarct finding no longer present Electronically Signed On 09-15-2020 14:07:52 TUFTING SUPERVISOR by Bc Vick [email or web address] <ELECTRONICALLY SIGNED> By: Bc Vick MD, FAC 09/15/20 1407 7 7 Bc Vick MD, [facility] /EPI
--- NOTE | 2020-09-15 14:33 | D ---
[address] [address] DISCHARGE SUMMARY Name: SMILEYTRU Mejía Room: [address] Cathy Cazares#: [id number] Admission: 09/14/20 Attend Phys: Tru Rodriguez MD, F Discharge: 09/15/20 Date of : 64 Report #: [id number] THIS REPORT FOR: cc: Parth Duran Bradley L. DO Tru Rodriguez MD [facility] DATE OF SERVICE: 09/15/2020 DISCHARGE DIAGNOSES: 1. Coronary artery disease. 2. Hypertension. 3. Hyperlipidemia. 4. Tobacco abuse. CONSULTANTS: None. PROCEDURES: Left heart catheterization with placement of 3 drug-eluting stents in the left anterior descending artery and a drug-eluting stent in the circumflex artery via the radial approach. 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 He was brought to the outpatient department to undergo repeat cardiac catheterization. The patient initially presented in 11/2019 with a non-STEMI. I performed a cardiac catheterization. He was noted to have acute occlusion of the first diagonal branch. He underwent reperfusion and I placed a single drug-eluting stent in the circumflex artery. Ejection fraction was 45%. He was started on Effient. Vascular screening showed minimal carotid plaque. Recently, he complained of exertional shortness of breath and chest tightness. Repeat echocardiogram in May showed an ejection fraction of 40%. Recent nuclear stress test showed ejection fraction 39% with anteroapical scar with periinfarct ischemia. Recommend repeat cardiac catheterization. PAST MEDICAL HISTORY: Significant for hernia repair, knee surgery, back surgery, hypertension, hyperlipidemia. MEDICATIONS: Include aspirin, Lipitor, Lexapro, Pepcid, Lasix as needed, losartan, metoprolol, Effient. ALLERGIES: He has no known drug allergies. PHYSICAL EXAMINATION: VITAL SIGNS: Blood pressure was 140/90, pulse was 60. CHEST: Clear to auscultation. CARDIOVASCULAR: [place] [address] DISCHARGE SUMMARY Name: TRU REIS Room: [address]#: [id number] Admission: 09/14/20 Attend Phys: Tru Rodriguez MD, F Discharge: 09/15/20 Date of : 64 Report #: [id number] ABDOMEN: Soft. EXTREMITIES: Had no edema. SKIN: Cool and dry. NEUROLOGIC: Nonfocal. DIAGNOSTIC DATA: His ECG showed sinus bradycardia, nonspecific ST-segment changes. LABORATORY DATA: His lab work on admission: Sodium 139, potassium 4.2, creatinine 1.0, glucose 103. His liver function studies were normal. His cholesterol 196, triglyceride 74, HDL 29, LDL 53. His white blood cell count 8.2, hemoglobin 12.6, platelet count was normal. HOSPITAL COURSE: The patient was brought to the outpatient department. I performed cardiac catheterization from the right radial artery. No ventriculogram was performed. The LAD had a 90% mid stenosis. The stent in the diagonal was widely patent. There is an 80% narrowing of the first marginal branch of circumflex. The distal right coronary had a PDA branch that was small and had a 90% stenosis. He was then loaded with heparin and I placed 3 drug-eluting stents in the LAD and 1 in the circumflex artery. He tolerated the procedure well. He had no further chest pain, arrhythmias or heart failure. There was no hematoma in the right wrist. Prior to discharge, he was ambulating, had no further complaints. Followup ECG showed sinus bradycardia. No additional ST or T-wave changes. Followup laboratory, his creatinine was 1.0. His peak troponin was 5.28. His followup hemoglobin was 12.6. At the time of discharge, he is ambulating, had no further complaints. Vital signs at the time of discharge, his blood pressure 140/70s, pulse is 60. He was afebrile. He was discharged to return to care of Dr. Parth Duran for routine medical care. He is going to return to see me in the Cardiology Clinic in 8 weeks. He was to continue his home medications including Effient. He was to contact my office if he had recurrent chest pain or shortness of breath. Fortunately, he stopped smoking 2 months ago. His prognosis is guarded due to his diffuse coronary artery disease. He was to contact my office if he had bleeding on the Effient. I did recommend he gradually increase his activity. 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 <ELECTRONICALLY SIGNED> By: Tru Rodriguez MD, [facility] 09/15/20 1433 [id number] Rodriguez MD, FACC /nt
--- NOTE | 2020-09-15 15:18 | NUR ---
CM INFORMED DURING PRIME ROUNDING OF THE PLAN OF CARE FOR THE PT. PLAN FOR THE PT TO D/C HOME TODAY WITH SELF-CARE. NO CM D/C PLANNING NEEDS ANTICIPATED. CM WILL REMAIN AVAILABLE TO ASSIST AND FOLLOW NEEDED.
== END 2020-09-15 11:45 | disposition home or self-care (01) ==
LOC: M.CL 08:59 → M.TBA-CV 11:35 → M.2W 14:45
PROVIDERS: ADMIT Internal Medicine Cardiovascular Disease; ATTEND Internal Medicine Cardiovascular Disease
DX: I25.10 Atherosclerotic heart disease of native coronary artery without angina pectoris (principal); E78.5 Hyperlipidemia, unspecified; Z20.822 Contact with and (suspected) exposure to COVID-19; I11.0 Hypertensive heart disease with heart failure; I50.22 Chronic systolic (congestive) heart failure; I21.4 Non-ST elevation (NSTEMI) myocardial infarction; F17.200 Nicotine dependence, unspecified, uncomplicated; Z98.890 Other specified postprocedural states; Z79.82 Long term (current) use of aspirin; Z79.899 Other long term (current) drug therapy